=== PATIENT | male | born 1945 | race Caucasian/White ===

== ENCOUNTER 2016-06-13 10:47 | Emergency (ER) | payer MEDICARE, OTHER ==
[~2016-06-13 10:47] MED LIST: ALDACTONE25 M1 PO; AMIODARONE HCL200 M1 PO; ASPIRIN EC81 MG PO; ATIVAN0.5 M1 PO; B-12500 MC1 PO; COREG6.25 M1 PO; COUMADIN2 M1 PO; COUMADIN4 M1 PO; DEMADEX20 M1 PO; FLOMAX0.4 M1 PO; FLUOCINONIDE-E15 GM TOP; FOLIC ACID1 M1 PO; KLOR-CON M2020 ME1 PO; LASIX40 M1 PO; MELATONIN1 M2 PO; MIRALAX17 G2 PO; MUSE500 MCG UR; NEURONTIN300 M1 PO; NITROSTAT0.4 MG/TAB SL; NORCO 5-325 TA1 EACH PO; PRENATAL-U CAPS1 CAP PO; REMERON15 M1 PO; SYNTHROID25 MC1 PO; TUMERIC ROOT EXTRACT PO; VALTREX500 M1 PO
== END 2016-06-13 12:50 ==
LOC: EDMED 10:47
DX: L89.159 Pressure ulcer of sacral region, unspecified stage (principal); L89.899 Pressure ulcer of other site, unspecified stage; I87.002 Postthrombotic syndrome without complications of left lower extremity; Z88.8 Allergy status to other drugs, medicaments and biological substances